=== PATIENT | male | born 1970 | race Caucasian/White ===

== ENCOUNTER 2016-11-18 18:01 | Emergency (ER) | payer MEDICAID, MEDICARE ==
[2016-11-18] MEDS ORDERED: IOPAMIDOL 300 (61%) 150 ML VIAL IV ONE (18:02)
[2016-11-18] MEDS ORDERED: SODIUM CHLORIDE 0.9% 1,000 ML ONE (19:08)
[2016-11-18] MEDS ORDERED: ONDANSETRON 4 MG/2ML 2 ML VIAL ONE (19:08)
[2016-11-18 19:25] LABS: ABSOLUTE NEUTROPHIL COUNT 5.9 K/mm3 (1.8-7.7); BASO # 0.1 K/mm3 (0.0-0.2); BASO % 0.6 % (0.2-1.0); EOS # 0.2 (0.0-0.5); EOS % 1.4 % (0.9-2.9); HEMATOCRIT 41.8 % (32.0-52.0); HEMOGLOBIN 14.6 gm/l (14.0-18.0); IMM NEUT # 0.1 K/mm3 (0-0.2); IMM NEUT% 0.4 % (0-1); LYMPH # 5.5 (1.0-4.8); LYMPH % 44.4 % (15-45); MEAN CELL VOLUME 83.3 fl (80.0-94.0); MEAN CORPUSCULAR HEMOGLOBIN 29.1 pg (27.0-31.0); MEAN CORPUSCULAR HGB CONC 34.9 g/dl (33.0-37.0); MEAN PLATELET VOLUME 10.2 fl (7.4-10.4); MONO # 0.7 (0.0-0.8); MONO % 5.6 % (4-12); NEUT % 47.6 % (43-75); PLATELET COUNT 294 K/mm3 (130-400); RED CELL DISTRIBUTION WIDTH 13.2 % (11.5-14.5)
[2016-11-18 19:32] LABS: PH,URINE 6.5 (5.0-8.0); URINE BILIRUBIN NEGATIVE (NEGATIVE); URINE BLOOD NEGATIVE (NEGATIVE); URINE GLUCOSE (UA) 3+ (NEGATIVE); URINE LEUKOCYTE ESTERASE NEGATIVE (NEGATIVE); URINE NITRITE NEGATIVE (NEGATIVE); URINE PROTEIN NEGATIVE (NEGATIVE); URINE UROBILINOGEN NORMAL (0-1 mg/dl)
[2016-11-18 19:45] LABS: I-STAT CREATININE 0.7 mg/dL (0.6-1.3)
[2016-11-18 19:49] LABS: URINE APPEARANCE CLEAR; URINE COLOR YELLOW
--- NOTE | 2016-11-18 20:42 | CT ---
EXAMINATION: Contrast enhanced CT scan of the abdomen and pelvis. CLINICAL INDICATION: Left lower quadrant pain COMPARISON: None TECHNIQUE: Oral contrast: None Following uneventful administration of 125 mL of Isovue 300, intravenously axial images were acquired from just above the domes of the diaphragm to the iliac crest. A CT scan of the pelvis was also obtained from the iliac crest to the initial tuberosities. Stacked axial, sagittal, and coronal images were reviewed. Findings: Abdomen CT: (Contrast-enhanced): The lung bases are clear and are without mass or pleural effusion. Liver exhibits diminished attenuation throughout compatible with fatty infiltration no discrete focal lesion is identified. The gallbladder is within normal limits. There is no evidence of biliary obstruction. The spleen size and attenuation are within normal limits. The pancreas is normal in size and contours. No inflammatory stranding is identified. The pancreatic duct is unremarkable. The adrenals are unremarkable. Kidneys are without solid mass or hydronephrosis. There is a 1.9 cm lower pole left renal cyst. There is atherosclerotic plaquing of the abdominal aorta. No aneurysmal dilatation is identified. The stomach is unremarkable. The visualized segments of small and large bowel are within normal limits. The osseous structures exhibit no displaced fracture. No lytic or blastic lesions are identified. Pelvic CT: (Contrast -enhanced): The distal ureters and bladder are unremarkable. The prostate is normal in size. No adenopathy is identified. The distal abdominal aorta and iliac vessels are within normal limits. The visualized segments of small and large bowel are within normal limits. The appendix is unremarkable. Mild spondylosis changes of lumbar spine are noted. There is retrolisthesis of L4 on L5. The overlying soft tissues are unremarkable. IMPRESSION: 1. No evidence of acute inflammatory or obstructive process involving the abdomen and pelvis. 2. Fatty infiltration of the liver. 3. Mild atherosclerosis. 4. Normal appendix. 5. Spondylosis changes of the lumbar spine. 6. Simple appearing 1.9 cm left renal cyst. The findings were uploaded to the electronic medical record for review at approximately 8:42 PM 11/18/2016
[2016-11-20 03:34] LABS: ALB/GLOB RATIO 1.7 (>1.0); ALBUMIN 4.5 gm/dL (3.5-5.7); CALCIUM 9.7 mg/dL (8.6-10.3)
== END 2016-11-18 21:39 | disposition home or self-care (01) ==
LOC: ED 18:01
DX: R10.32 Left lower quadrant pain (principal); E11.9 Type 2 diabetes mellitus without complications; E78.00 Pure hypercholesterolemia, unspecified; I10 Essential (primary) hypertension; Z79.899 Other long term (current) drug therapy; F60.3 Borderline personality disorder
CPT/HCPCS: 83690; 85025; 80053; 81003; 74177; 99284 ×2; 96374; 96361; J2405; J7030; Q9967

== ENCOUNTER 2017-02-16 17:50 | Emergency (ER) | payer MEDICARE ==
[2017-02-16] MEDS ORDERED: HYDROCODONE/ACETAMINOPHEN 5/325MG TABLET ONE (18:26)
--- NOTE | 2017-02-16 19:01 | RAD ---
TOE OR TOES LEFT HISTORY: Injury with history of diabetes. COMPARISONS: None. FINDINGS: 3 views of the left great toe were performed demonstrating normal bony mineralization. The osseous structures appear to remain intact. The alignment is appropriate. The joint spaces are relatively well-maintained. No focal soft tissue abnormalities are seen. IMPRESSION: 1. Negative views of the left great toe.
== END 2017-02-16 19:10 | disposition home or self-care (01) ==
LOC: ED 17:50
DX: S99.922A Unspecified injury of left foot, initial encounter (principal); E11.40 Type 2 diabetes mellitus with diabetic neuropathy, unspecified; E78.5 Hyperlipidemia, unspecified; E78.00 Pure hypercholesterolemia, unspecified; I10 Essential (primary) hypertension; I25.10 Atherosclerotic heart disease of native coronary artery without angina pectoris; F17.210 Nicotine dependence, cigarettes, uncomplicated; W22.09XA Striking against other stationary object, initial encounter; Y93.01 Activity, walking, marching and hiking; Y92.480 Sidewalk as the place of occurrence of the external cause; Y99.8 Other external cause status; Z98.61 Coronary angioplasty status; Z79.84 Long term (current) use of oral hypoglycemic drugs; Z79.4 Long term (current) use of insulin; Z79.899 Other long term (current) drug therapy; Z88.8 Allergy status to other drugs, medicaments and biological substances